=== PATIENT | male | born 1930 | race Caucasian/White ===

== ENCOUNTER → 2018-12-30 10:56 | Outpatient (CLI) | payer MEDICARE, BC ==
--- NOTE | 2018-12-31 14:39 | EC ---
PATIENT:LUKE BRUCE DATE OF SERVICE: 12/30/18 SEX: M MEDICAL RECORD: [id number] DATE OF : [birth year] [facility] AGE OF PATIENT: 88 ADMISSION DATE: 12/30/18 REFERRING PHYSICIAN: INTERPRETING PHYSICIAN: SWAPNIL ASCENCIO MD ECHOCARDIOGRAM REPORT ECHO CHARGES 4 ECHO COMPLETE Date: 12/30/18 CLINICAL DIAGNOSIS: HEART MURMUR ECHOCARDIOGRAPHIC MEASUREMENTS (adult normal given) AC root (d.<3.7cm) 3.7 cm LV Septum d (<1.2 cm> 1.6 cm Valve Excursion 1.2 cm LV Septum (systole) 1.9 cm Left Atria (s.<4.0cm> 4.7 cm LVPW d(<1.2cm) 1.7 cm RV (d.<2.3cm) 14.1 cm LVPW (sytole) 1.9 cm LV diastole(<5.6CM) 5.2 cm MV E-F(>70mm/sec) cm LV systole 3.9 cm LVOT Diameter 1.9 cm MV exc.(>10mm) 1.7 cm Est.ejection fraction (50-75%) % DOPPLER: LVIT cm/sec A 94.0 cm/sec E 139 cm/sec LA cm/sec RVSP 59 mmHg LVOT 105 cm/sec AOP1/2T m/s Asc. Ao 266 cm/sec RVOT 111 cm/sec RA cm/sec PA 145 cm/sec AV Gradient Peak 28.21mmHg AV Mean 14.31mmHg AV Area 1.0 cm MV Gradient Peak 10.77mmHg MV Mean 3.36 mmHg MV Area cm COMMENTS: Biblical Languages Professor: Brad PRINGLE Employment Manager: 1 Dr. Ascencio TAPE# PACS Pericardial Effusion N DATE OF SERVICE: 12/30/2018 PROCEDURE: Echocardiogram. FINDINGS: 1. Left ventricular chamber size is within normal limits. Left ventricular systolic function is normal. Overall ejection fraction estimated at 55%. 2. Left atrium is enlarged at 4.7 cm. Right atrium and right ventricular chamber sizes are mildly dilated as well. 3. Valvular structures: Aortic valve demonstrates [id number] calcific ECHOCARDIOGRAM REPORT [id number] LUKE BRUCE aortic stenosis, valve area calculates to 1.0 cm-squared with gradient 28 mm across the valve. The remaining valvular structures have normal structure and motion. 4. Doppler interrogation elsewise reveals mild aortic insufficiency, mild mitral regurgitation, moderate tricuspid regurgitation, no other valvular insufficiency or stenosis. Pulmonary systolic pressure is elevated estimated 60 mmHg. 5. No evidence of pericardial effusion or left ventricular thrombus. TRANSINT:[id number] Voice Confirmation ID: [id number] DOCUMENT ID: [id number] SWAPNIL ASCENCIO MD at 1439 CC: [id number] DICTATION DATE: 12/30/18 1325 MESS ATTENDANT CREW: 12/30/18 1541 DEP CLI 12/30/18 [id number] [place] [id number]
== END | disposition home or self-care (01) ==
LOC: D.ECHO 10:56
DX: R09.89 Other specified symptoms and signs involving the circulatory and respiratory systems (principal)